=== PATIENT | male | born 2000 | race Hispanic/Latino ===

== ENCOUNTER 2023-01-15 21:15 | Emergency (ER) | payer BC, SELFPAY ==
[2023-01-15] MEDS ORDERED: Ketorolac Tromethamine 30 MG/ML VIAL ONE (21:58)
[2023-01-15 22:07] LABS: Hemoglobin 15.7 g/dL (14.0-18.0); Mean Corpuscular HGB CONC 34.4 g/dL (32.0-36.0); Mean Corpuscular Hemoglobin 27.2 pg (27.0-31.0); Mean Corpuscular Volume 79.2 fl (78.0-98.0); Platelet Count 181 10x3/uL (130-400); RBC Distribution Width 13.1 % (11.5-14.5); Red Blood Cell (RBC) Count 5.77 mill/uL (4.70-6.10)
[2023-01-15 22:20] LABS: Delete Auto Diff?? YES; Manual Diff?? YES
[2023-01-15 22:28] LABS: ALT (SGPT) 90 U/L (8-55); AST (SGOT) 83 U/L (5-34); Albumin 4.5 g/dL (3.5-5.0); Alkaline Phosphatase 52 U/L (40-110); Anion Gap 13 mmol/L (10-20); BUN (Urea Nitrogen) 9 mg/dL (8.9-20.6); Bilirubin, Total 1.1 mg/dL (0.2-1.2); Calc. Creatinine Clearance 0 mL/min (70-130); Calcium 9.8 mg/dL (7.8-10.44); Carbon Dioxide 26 mmol/L (22-29); Chloride 98 mmol/L (98-107); Estimated GFR 111; Globulin 3.9 g/dL (2.4-3.5); Glucose 226 mg/dL (70-105); Potassium 3.8 mmol/L (3.5-5.1); Protein, Total 8.4 g/dL (6.0-8.3); Sodium 133 mmol/L (136-145)
[2023-01-15 22:58] LABS: Band 19 % (5-11); CellaVision Operator ID LAB.JMM; Eosinophils 2 % (0-10); Lymphocytes 25 % (21-51); Metamyelocyte 1 % (0-0); Monocytes 7 % (0-10); Neutrophil 39 % (42-75); Platelet Adequacy Comment Platelets Normal; RBC Morphology Within Normal Limits; Reactive Lymphocytes 5 % (0-10); Total Cell Count 101
== END 2023-01-15 23:28 | disposition home or self-care (01) ==
LOC: ERS 21:15
DX: K05.10 Chronic gingivitis, plaque induced (principal); E11.9 Type 2 diabetes mellitus without complications; Z79.84 Long term (current) use of oral hypoglycemic drugs
CPT/HCPCS: 80053; 85025; 96361; 96374; J1885